=== PATIENT | male | born 1965 | race Caucasian/White ===

== ENCOUNTER → 2016-06-14 | Outpatient (CLI) | payer MEDICARE, OTHER ==
[2016-06-14 09:35] LABS: HEMATOCRIT 41.2 % (37.9-51.0); HEMOGLOBIN 13.6 g/dL (13.5-17.0); HGB HCT DIFFERENCE -0.4; MEAN CORPUSCULAR HEMOGLOBIN 26.2 pg (27.0-33.4); MEAN CORPUSCULAR HGB CONC 33.1 g/dL (32.0-36.0); MEAN CORPUSCULAR VOLUME 79 fl (80-97); RED CELL DISTRIBUTION WIDTH 14.9 % (11.5-14.0); WHITE BLOOD COUNT 6.4 10^3/uL (4.0-10.5)
[2016-06-14 10:04] LABS: ALANINE AMINOTRANSFERASE 38 U/L (21-72); ALBUMIN 4.5 g/dL (3.5-5.0); ALKALINE PHOSPHATASE 108 U/L (38-126); ANION GAP 11 (5-19); ASPARTATE AMINO TRANSFERASE 21 U/L (17-59); BILIRUBIN,TOTAL 0.5 mg/dL (0.2-1.3); BLOOD UREA NITROGEN 14 mg/dL (7-20); CALCIUM 9.8 mg/dL (8.4-10.2); CARBON DIOXIDE 28 mmol/L (22-30); CHLORIDE 101 mmol/L (98-107); CHOLESTEROL 103.62 mg/dL (0-200); CREATININE RESULT 0.74 mg/dL (0.52-1.25); Direct HDL 35 mg/dL (>40); GLUCOSE 160 mg/dL (75-110); MAGNESIUM 1.8 mg/dL (1.6-2.3); POTASSIUM 4.9 mmol/L (3.6-5.0); SODIUM 140.1 mmol/L (137-145); TOTAL PROTEIN 7.2 g/dL (6.3-8.2); TRIGLYCERIDES 123 mg/dL (<150)
[2016-06-14 10:14] LABS: DIRECT LDL 43 mg/dL (<100)
== END ==
LOC: OD 08:26
PROVIDERS: ATTEND Internal Medicine Cardiovascular Disease
DX: E78.00 Pure hypercholesterolemia, unspecified (principal); E03.9 Hypothyroidism, unspecified; Z79.899 Other long term (current) drug therapy
CPT/HCPCS: 36415; 80048; 80061; 80076; 82977; 83036; 83735; 84443; 85027

== ENCOUNTER → 2016-07-10 | Outpatient (CLI) | payer MEDICARE, OTHER ==
[2016-07-10 11:00] LABS: ANION GAP 10 (5-19); BLOOD UREA NITROGEN 12 mg/dL (7-20); CALCIUM 10.2 mg/dL (8.4-10.2); CARBON DIOXIDE 30 mmol/L (22-30); CHLORIDE 101 mmol/L (98-107); CREATININE RESULT 0.71 mg/dL (0.52-1.25); GLUCOSE 141 mg/dL (75-110); POTASSIUM 4.6 mmol/L (3.6-5.0); SODIUM 141.3 mmol/L (137-145)
== END ==
LOC: OD 09:18
PROVIDERS: ATTEND Internal Medicine Cardiovascular Disease
DX: I10 Essential (primary) hypertension (principal)
CPT/HCPCS: 36415; 80048

== ENCOUNTER → 2017-08-30 | Outpatient (CLI) | payer MEDICARE, OTHER ==
[2017-08-30 11:23] LABS: ANION GAP 13 (5-19); BLOOD UREA NITROGEN 16 mg/dL (7-20); CARBON DIOXIDE 28 mmol/L (22-30); CHLORIDE 98 mmol/L (98-107); GLUCOSE 109 mg/dL (75-110); SODIUM 138.8 mmol/L (137-145)
[2017-09-01 10:14] LABS: FREE T3 4.89 pg/mL (2.77-5.27); FREE T4 (FREE THYROXINE) 1.34 ng/dL (0.78-2.19)
== END ==
LOC: OD 10:26
PROVIDERS: ATTEND Internal Medicine Cardiovascular Disease
DX: I48.0 Paroxysmal atrial fibrillation (principal)
CPT/HCPCS: 36415; 80048; 84439; 84443; 84481

== ENCOUNTER → 2018-01-15 | Outpatient (CLI) | payer MEDICARE, OTHER ==
[2018-01-15 09:52] LABS: HEMATOCRIT 51.2 % (37.9-51.0); HEMOGLOBIN 17.2 g/dL (13.5-17.0); MEAN CORPUSCULAR HEMOGLOBIN 29.1 pg (27.0-33.4); MEAN CORPUSCULAR HGB CONC 33.5 g/dL (32.0-36.0); MEAN CORPUSCULAR VOLUME 87 fl (80-97); PLATELET COUNT 234 10^3/uL (150-450); WHITE BLOOD COUNT 10.1 10^3/uL (4.0-10.5)
[2018-01-15 10:12] LABS: ALANINE AMINOTRANSFERASE 30 U/L (21-72); ALBUMIN 4.2 g/dL (3.5-5.0); ALKALINE PHOSPHATASE 101 U/L (38-126); ANION GAP 11 (5-19); ASPARTATE AMINO TRANSFERASE 31 U/L (17-59); BILIRUBIN,DIRECT 0.4 mg/dL (0.0-0.4); BLOOD UREA NITROGEN 14 mg/dL (7-20); CALCIUM 9.8 mg/dL (8.4-10.2); CARBON DIOXIDE 26 mmol/L (22-30); CHLORIDE 101 mmol/L (98-107); GLUCOSE 167 mg/dL (75-110); POTASSIUM 4.7 mmol/L (3.6-5.0); SODIUM 137.9 mmol/L (137-145); TOTAL PROTEIN 7.1 g/dL (6.3-8.2); TRIGLYCERIDES 213 mg/dL (<150)
[2018-01-15 10:23] LABS: DIRECT LDL 31 mg/dL (<100)
[2018-01-15 10:30] LABS: VLDL CHOLESTEROL 42.6 mg/dL (10-31)
== END ==
LOC: LAB 09:31
PROVIDERS: ATTEND Internal Medicine Cardiovascular Disease
DX: I25.10 Atherosclerotic heart disease of native coronary artery without angina pectoris (principal); I10 Essential (primary) hypertension; I48.0 Paroxysmal atrial fibrillation; R07.9 Chest pain, unspecified; Z79.899 Other long term (current) drug therapy
CPT/HCPCS: 36415; 80048; 80061; 80076; 84443; 85027

== ENCOUNTER → 2018-05-20 | Outpatient (CLI) | payer MEDICARE, OTHER ==
[2018-05-20 09:13] LABS: ALANINE AMINOTRANSFERASE 47 U/L (21-72); ALBUMIN 4.2 g/dL (3.5-5.0); ALKALINE PHOSPHATASE 98 U/L (38-126); ANION GAP 9 (5-19); ASPARTATE AMINO TRANSFERASE 24 U/L (17-59); BILIRUBIN,DIRECT 0.2 mg/dL (0.0-0.4); BILIRUBIN,TOTAL 0.6 mg/dL (0.2-1.3); BLOOD UREA NITROGEN 14 mg/dL (7-20); CALCIUM 9.8 mg/dL (8.4-10.2); CARBON DIOXIDE 28 mmol/L (22-30); CHLORIDE 102 mmol/L (98-107); CHOLESTEROL 108.91 mg/dL (0-200); GLUCOSE 188 mg/dL (75-110); POTASSIUM 5.2 mmol/L (3.6-5.0); SODIUM 138.6 mmol/L (137-145); TOTAL PROTEIN 6.9 g/dL (6.3-8.2); TRIGLYCERIDES 239 mg/dL (<150)
[2018-05-20 09:24] LABS: DIRECT LDL 47 mg/dL (<100)
[2018-05-20 09:29] LABS: VLDL CHOLESTEROL 47.8 mg/dL (10-31)
== END ==
LOC: LAB 08:22
PROVIDERS: ATTEND Internal Medicine Cardiovascular Disease
DX: I25.10 Atherosclerotic heart disease of native coronary artery without angina pectoris (principal); E78.00 Pure hypercholesterolemia, unspecified; I10 Essential (primary) hypertension; Z79.899 Other long term (current) drug therapy
CPT/HCPCS: 36415; 80048; 80061; 80076

== ENCOUNTER 2018-06-02 13:22 | Inpatient (IN) | payer MEDICARE, OTHER ==
[2018-06-02] MEDS ORDERED: ASPIRIN 81 MG TABLET, CHEWABLE PO ONE (13:24)
[2018-06-02] MEDS ORDERED: METOPROLOL TARTRATE PF/INJ 5 MG/5 ML SDV IV ONE ×7 (13:42→15:16)
[2018-06-02 13:44] LABS: HEMATOCRIT 52.3 % (37.9-51.0); HEMOGLOBIN 17.5 g/dL (13.5-17.0); MEAN CORPUSCULAR HEMOGLOBIN 28.4 pg (27.0-33.4); MEAN CORPUSCULAR HGB CONC 33.4 g/dL (32.0-36.0); MEAN CORPUSCULAR VOLUME 85 fl (80-97); PLATELET COUNT 313 10^3/uL (150-450); RED BLOOD COUNT 6.16 10^6/uL (4.35-5.55); RED CELL DISTRIBUTION WIDTH 14.6 % (11.5-14.0)
--- NOTE | 2018-06-02 13:57 | ER Document Report ---
ED Cardiac - General Chief Complaint: Chest Pain > 30 Stated Complaint: CHEST PRESSURE Time Seen by Provider: 06/02/18 13:35 Primary Care Provider: LOREN ZUNIGA MD [EMERITUS] - Follow up as needed Mode of Arrival: Medic Information source: Patient Notes: 53-year-old male with a history of A. fib, peripheral artery disease, diabetes, COPD brought to the emergency department by EMS from 's office. Patient was at the office this morning undergoing a routine physical exam and blood work when it was noted his heart rate to be in a flutter at a rate in the 140s. Patient was asymptomatic at that time. EMS was contacted. 25 mg of Cardizem was given in route. In the emergency department, patient continues to be asymptomatic. He denies any chest pain, shortness of breath, nausea, vomiting, diaphoresis, abdominal pain. Patient states that he feels fine. He is on metoprolol for his atrial fibrillation. He took his medication this morning as usual. Patient's also on Plavix. TRAVEL OUTSIDE OF THE [place] IN LAST 30 DAYS: No - HPI Patient complains to provider of: Other - Sent by primary care physician. Quality of pain: None Severity now: None Pain level currently: Denies Cardiac risk factors: Diabetes, Smoker, Dyslipidemia Associated symptoms: None Exacerbated by: Denies Relieved by: Nothing Similar symptoms previously: Yes Recently seen / treated by doctor: Yes - Related Data Allergies/Adverse Reactions: No Known Allergies Allergy (Verified 06/02/18 13:33) Past Medical History - General Information source: Patient - Social History Smoking Status: Current Every Day Smoker Family History: Reviewed & Not Pertinent - Past Medical History Cardiac Medical History: Reports: Hx Atrial Fibrillation, Hx Hypertension Endocrine Medical History: Reports: Hx Diabetes Mellitus Type 2 - Immunizations Hx Diphtheria, Pertussis, Tetanus Vaccination: Yes Review of Systems - Review of Systems Constitutional: No symptoms reported EENT: No symptoms reported Cardiovascular: Heart racing Respiratory: No symptoms reported Gastrointestinal: No symptoms reported Genitourinary: No symptoms reported Musculoskeletal: No symptoms reported Skin: No symptoms reported Hematologic/Lymphatic: No symptoms reported Neurological/Psychological: No symptoms reported -: Yes All other systems reviewed and negative Physical Exam - Vital signs Vitals: Pulse Ox 100 06/02/18 13:28 - Notes Notes: PHYSICAL EXAMINATION: GENERAL: Well-appearing, well-nourished and in no acute distress. HEAD: Atraumatic, normocephalic. EYES: Pupils equal round and reactive to light, extraocular movements intact, sclera anicteric, conjunctiva are normal. ENT: Nares patent, oropharynx clear without exudates. Moist mucous membranes. NECK: Normal range of motion, supple without lymphadenopathy LUNGS: Breath sounds clear to auscultation bilaterally and equal. No wheezes rales or rhonchi. HEART: Tachycardia. Atrial flutter. ABDOMEN: Soft, nontender, nondistended abdomen. No guarding, no rebound. No masses appreciated. Musculoskeletal: Normal range of motion, no pitting or edema. No cyanosis. NEUROLOGICAL: Cranial nerves grossly intact. Normal speech, normal gait. Normal sensory, motor exams PSYCH: Normal mood, normal affect. SKIN: Warm, Dry, normal turgor, no rashes or lesions noted. Course - Re-evaluation Re-evalutation: 06/02/18 13:57 EKG: Ventricular rate 142, cures duration 90, QTc 449, atrial flutter. 06/02/18 15:41 Labs and imaging obtained. Troponin is within normal limits. No acute process identified. Patient was given 25 mg of Cardizem by EMS. A total of 15 mg of metoprolol was given in the emergency department. Patient continued to have a rate in the 140s. A Cardizem drip was then started. Patient's rate in the 130s on the cardizem drip. Patient continues to be asymptomatic. His vital signs are stable. I would admit the patient to the hospitalist for further evaluation and treatment. - Vital Signs Vital signs: Temp Pulse Resp BP Pulse Ox 98.2 F 140 H 23 H 117/75 94 06/02/18 14:05 06/02/18 13:59 06/02/18 15:01 06/02/18 15:01 06/02/18 15:01 - Laboratory Result Diagrams: 06/02/18 13:10 06/02/18 13:10 Laboratory results interpreted by me: 06/02/18 06/02/18 13:10 13:10 RBC 6.16 H Hgb 17.5 H Hct 52.3 H RDW 14.6 H Chloride 97 L Glucose 164 H Creatine Kinase 30 L Discharge - Discharge Clinical Impression: Atrial flutter Qualifiers: Atrial flutter type: unspecified Qualified Code(s): I48.92 - Unspecified atrial flutter Condition: Good Disposition: ADMITTED OBSERVATION Admitting Provider: Hospitalist Unit Admitted: IMCU Referrals: LOREN ZUNIGA MD [EMERITUS] - Follow up as needed
[2018-06-02 14:05] LABS: ALANINE AMINOTRANSFERASE 39 U/L (21-72); ALBUMIN 4.4 g/dL (3.5-5.0); ALKALINE PHOSPHATASE 112 U/L (38-126); ANION GAP 10 (5-19); ASPARTATE AMINO TRANSFERASE 25 U/L (17-59); BILIRUBIN,DIRECT 0.3 mg/dL (0.0-0.4); BILIRUBIN,TOTAL 0.6 mg/dL (0.2-1.3); BLOOD UREA NITROGEN 10 mg/dL (7-20); CALCIUM 9.8 mg/dL (8.4-10.2); CARBON DIOXIDE 30 mmol/L (22-30); CHLORIDE 97 mmol/L (98-107); CREATINE KINASE 30 U/L (55-170); GLUCOSE 164 mg/dL (75-110); SODIUM 137.2 mmol/L (137-145); TOTAL PROTEIN 7.5 g/dL (6.3-8.2)
[2018-06-02 14:12] LABS: ABSOLUTE LYMPHOCYTES# (MANUAL) 2.9 10^3/uL (0.5-4.7); ABSOLUTE MONOCYTES # (MANUAL) 0.6 10^3/uL (0.1-1.4); ABSOLUTE NEUTROPHILS# (MANUAL) 5.4 10^3/uL (1.7-8.2); BAND NEUTROPHILS % (MANUAL) 3 % (3-5); BASOPHILS % (MANUAL) 0 % (0-2); EOSINOPHILS % (MANUAL) 1 % (0-6); LYMPHOCYTES % (MANUAL) 18 % (13-45); MONOCYTES % (MANUAL) 7 % (3-13); PLATELET COMMENT ADEQUATE; RBC MORPHOLOGY COMMENT NORMO-CYTIC/CHROMIC; SEGMENTED NEUTROPHILS % (MAN) 57 % (42-78); TOTAL CELLS COUNTED 100; TOXIC GRANULATION SLIGHT
[2018-06-02] MEDS ORDERED: NORMAL SALINE 500 ML IV ONE (14:15)
[2018-06-02 14:17] LABS: CREATINE KINASE MB 0.59 ng/mL (<4.55); TROPONIN I < 0.012 ng/mL
[2018-06-02] MEDS: DILTIAZEM HCL/D5W 125 MG/125 ML RTUINJ IV PRN ×5 (14:47→17:05)
--- NOTE | 2018-06-02 15:50 | RADIOLOGY REPORT (SQ) ---
EXAM DESCRIPTION: CHEST SINGLE VIEW COMPLETED DATE/TIME: 06/02/2018 3:23 pm REASON FOR STUDY: bed 18 tachy COMPARISON: 2010 EXAM PARAMETERS: NUMBER OF VIEWS: One view. TECHNIQUE: Single frontal radiographic view of the chest acquired. RADIATION DOSE: NA LIMITATIONS: None. FINDINGS: LUNGS AND PLEURA: No opacities, masses or pneumothorax. No pleural effusion. MEDIASTINUM AND HILAR STRUCTURES: No masses. Contour normal. HEART AND VASCULAR STRUCTURES: Heart normal in size. Normal vasculature. BONES: No acute findings. HARDWARE: None in the chest. OTHER: No other significant finding. IMPRESSION: NO ACUTE RADIOGRAPHIC FINDING IN THE CHEST. TECHNICAL DOCUMENTATION: JOB ID: [id number] [employer]- All Rights Reserved Reading location - IP/workstation name: [email or web address]
[2018-06-02 16:04] LABS: APPEARANCE,URINE CLEAR; BILIRUBIN,URINE NEGATIVE (NEGATIVE); COLOR,URINE YELLOW; GLUCOSE, URINE NEGATIVE (NEGATIVE); KETONES,URINE NEGATIVE (NEGATIVE); LEUKOCYTE ESTERASE,URINE NEGATIVE (NEGATIVE); NITRITE,URINE NEGATIVE (NEGATIVE); PROTEIN,URINE NEGATIVE (NEGATIVE); URINE SPECIFIC GRAVITY 1.006; UROBILINOGEN,URINE NEGATIVE mg/dL (<2.0)
[2018-06-02 16:08] LABS: FREE T4 (FREE THYROXINE) 1.26 ng/dL (0.78-2.19)
[2018-06-02 16:22] LABS: THYROID STIMULATING HORMONE 1.26 uIU/mL (0.47-4.68)
[2018-06-02 16:23] LABS: URINE AMPHETAMINES SCREEN NEGATIVE; URINE BARBITURATES SCREEN NEGATIVE; URINE BENZODIAZEPINES SCREEN NEGATIVE; URINE COCAINE SCREEN NEGATIVE; URINE MARIJUANA (THC) SCREEN NEGATIVE; URINE METHADONE SCREEN NEGATIVE; URINE PHENCYCLIDINE SCREEN NEGATIVE
[2018-06-02] MEDS ORDERED: LEVALBUTEROL HCL NEB 1.25 MG/3 ML AMPUL NEB PRN (16:35)
[2018-06-02] MEDS ORDERED: NORMAL SALINE 1000 ML 1,000 ML IV PRN (16:35)
[2018-06-02] MEDS ORDERED: ACETAMINOPHEN 325 MG TABLET PO PRN (16:35)
[2018-06-02] MEDS ORDERED: ONDANSETRON HCL INJ/PF 4 MG/2 ML SDV IV PRN (16:49)
[2018-06-02] MEDS ORDERED: MAG HYDROX/AL HYDROX/SIMETH SUSP 30 ML UDCUP PO PRN (16:49)
[2018-06-02] MEDS ORDERED: MAGNESIUM HYDROXIDE SUSP 30 ML UDCUP PO PRN (16:49)
[2018-06-02] MEDS ORDERED: MORPHINE SULFATE 10 MG/ML INJ IV PRN (17:13)
[2018-06-02] MEDS ORDERED: NITROGLYCERIN 0.4 MG/TAB 25 TAB/BOTTLE SL PRN (17:13)
[2018-06-02] MEDS ORDERED: LORAZEPAM 1 MG TABLET PO PRN (17:21)
[2018-06-02] MEDS ORDERED: DEXTROSE 50%-WATER 25 GM/50 ML DISP.SYRIN IV PRN ×2 (17:22)
[2018-06-02] MEDS ORDERED: DEXTROSE 40% GEL 15 GM TUBE PO PRN ×2 (17:22)
[2018-06-02] MEDS ORDERED: INSULIN LISPRO 100 UNIT/ML 3 ML VIAL SUBCUT PRN (17:22)
[2018-06-02] MEDS ORDERED: GLUCAGON,HUMAN RECOMB 1 MG INJ IM PRN (17:22)
[2018-06-02] MEDS ORDERED: GUAIFENESIN SYRP 200 MG/10 ML UDC PO PRN (17:26)
--- NOTE | 2018-06-02 17:58 | PDOC H&P ---
Addendum entered and electronically signed by PENNY ZARATE NP-C 06/02/18 18:56: Provider Note Provider Note: Spoke with the patient's primary and consulted legal support assistant, Dr. Hurley, regarding the patient's progress since arrival to our facility. Dr. Hurley was informed that the patient has received diltiazem push followed by Lopressor 30 mg total at 5 mg increments, and then initiated on diltiazem drip which has been maxed out. Patient remains in a. flutter with a rate in the 140s. Patient currently describes nonspecific chest discomfort, unchanged from arrival, with normotensive blood pressures. Requested recommendations for continued attempts at rate control. Dr. Hurley is arranging transfer to tertiary care facility where solid waste analyst available. No new medication recommendations at this time. Original Note: History of Present Illness Admission Date/PCP: 06/02/18 16:24 CHING MATREY Patient complains of: Chest pressure History of Present Illness: DANIELE ADKINS is a 53 year old male with a past medical history significant for atrial fibrillation, COPD, SHAZIA (utilizes CPAP), COPD, DM 2, PVD, neuropathy, chronic back pain, opiate dependence with continuous use, tobacco dependence with continuous use, and heavy EtOH use who was sent by his legal support assistant, Dr. Hurley, for report of chest pressure and atrial flutter with RVR. The patient had been at his legal support assistant for routine follow-up when he was noted to be in aflutter. The patient reports that he has had a chest cold for several weeks and has had intermittent chest pressure but cannot attest to whether it is related to cardiac or his upper respiratory infection. He does endorse fever, chills, malaise, dyspnea on exertion, and a productive cough. He reports that his has similar symptoms. Evaluation in the emergency department reveals a flutter with RVR rate of [address] depression in the lateral leads, benign chest x-ray, and an unremarkable laboratory evaluation including a normal troponin TSH/free T4, CBC and chemistry. The patient is referred to the hospitalist service for admission and management of the above mentioned complaints and findings. Past Medical History Cardiac Medical History: Reports: Atrial Fibrillation, Hypertension Pulmonary Medical History: Reports: Chronic Obstructive Pulmonary Disease ( COPD), Sleep Apnea EENT Medical History: Reports: None Neurological Medical History: Reports: None Endocrine Medical History: Reports: Diabetes Mellitus Type 2 Renal/ Medical History: Reports: None Malignancy Medical History: Reports: None GI Medical History: Reports: None Musculoskeltal Medical History: Reports: Arthritis Skin Medical History: Reports: None Psychiatric Medical History: Reports: Alcohol Dependency, Tobacco Dependency Traumatic Medical History: Reports: None Hematology: Reports: None Infectious Medical History: Reports: None Past Surgical History Past Surgical History: Reports: Orthopedic Surgery - b/l knee replace, Vascular Surgery - b/l fempop-by pass Social History Information Source: Patient Lives with: Family Smoking Status: Current Every Day Smoker Cigarettes Packs Per Day: 1 Frequency of Alcohol Use: Heavy Amount of Alcoholic Beverages Per Day: 2.5 Hx Recreational Drug Use: No Drugs: None Hx Prescription Drug Abuse: No - Advance Directive Resuscitation Status: Full Code Surrogate healthcare decision maker:: The patient's , Kailey Adkins Family History Family History: Reviewed & Not Pertinent Parental Family History Reviewed: Yes Children Family History Reviewed: Yes Sibling(s) Family History Reviewed.: Yes Medication/Allergy Allergies/Adverse Reactions: No Known Allergies Allergy (Verified 06/02/18 13:33) Review of Systems Constitutional: PRESENT: chills, fatigue, fever(s), headache(s), other - acutely ill appearing. ABSENT: weight gain, weight loss Eyes: ABSENT: visual disturbances Ears: ABSENT: hearing changes Cardiovascular: PRESENT: chest pain. ABSENT: dyspnea on exertion, edema, orthropnea, palpitations Respiratory: PRESENT: cough, dyspnea, sputum. ABSENT: hemoptysis Gastrointestinal: ABSENT: abdominal pain, constipation, diarrhea, hematemesis, hematochezia, nausea, vomiting Genitourinary: ABSENT: dysuria, hematuria Musculoskeletal: ABSENT: joint swelling Integumentary: ABSENT: rash, wounds Neurological: ABSENT: abnormal gait, abnormal speech, confusion, dizziness, focal weakness, syncope Psychiatric: ABSENT: anxiety, depression, homidical ideation, suicidal ideation Endocrine: ABSENT: cold intolerance, heat intolerance, polydipsia, polyuria Hematologic/Lymphatic: ABSENT: easy bleeding, easy bruising Physical Exam Vital Signs: Temp Pulse Resp BP Pulse Ox 98.2 F 140 H 18 122/80 96 06/02/18 14:05 06/02/18 13:59 06/02/18 17:01 06/02/18 17:01 06/02/18 17:01 Intake & Output 06/01/18 06/02/18 06/03/18 06:59 06:59 06:59 Intake Total 21 Balance 21 Weight 103.6 kg General appearance: PRESENT: cooperative, disheveled, mild distress, obese, w ell-developed, well-nourished, other - acutely ill appearing Head exam: PRESENT: atraumatic, normocephalic Eye exam: PRESENT: conjunctiva pink, EOMI, PERRLA. ABSENT: scleral icterus Ear exam: PRESENT: normal external ear exam Mouth exam: PRESENT: moist, tongue midline Neck exam: ABSENT: carotid bruit, JVD, lymphadenopathy, thyromegaly Respiratory exam: PRESENT: prolonged expiratory phas, rhonchi, symmetrical, unlabored. ABSENT: rales, wheezes Cardiovascular exam: PRESENT: irregular rhythm, +S1, +S2, tachycardia. ABSENT: diastolic murmur, rubs, systolic murmur Pulses: PRESENT: normal dorsalis pedis pul Vascular exam: PRESENT: normal capillary refill GI/Abdominal exam: PRESENT: normal bowel sounds, soft. ABSENT: distended, guarding, mass, organolmegaly, rebound, tenderness Rectal exam: PRESENT: deferred Extremities exam: PRESENT: full ROM. ABSENT: calf tenderness, clubbing, pedal edema Neurological exam: PRESENT: alert, awake, oriented to person, oriented to place, oriented to time, oriented to situation, CN II-XII grossly intact. ABSENT: motor sensory deficit Psychiatric exam: PRESENT: appropriate affect, normal mood. ABSENT: homicidal ideation, suicidal ideation Skin exam: PRESENT: dry, intact, warm. ABSENT: cyanosis, rash Results Laboratory Results: 06/02/18 13:10 06/02/18 13:10 06/02/18 06/02/18 06/02/18 13:10 13:10 13:10 WBC 9.0 RBC 6.16 H Hgb 17.5 H Hct 52.3 H MCV 85 MCH 28.4 MCHC 33.4 RDW 14.6 H Plt Count 313 Seg Neutrophils % Not Reportable Lymphocytes % Not Reportable Monocytes % Not Reportable Eosinophils % Not Reportable Basophils % Not Reportable Absolute Neutrophils Not Reportable Absolute Lymphocytes Not Reportable Absolute Monocytes Not Reportable Absolute Eosinophils Not Reportable Absolute Basophils Not Reportable Sodium 137.2 Potassium 5.0 Chloride 97 L Carbon Dioxide 30 Anion Gap 10 BUN 10 Creatinine 0.64 Est GFR ( Amer) > 60 Est GFR (Non-Af Amer) > 60 Glucose 164 H Calcium 9.8 Total Bilirubin 0.6 AST 25 ALT 39 Alkaline Phosphatase 112 Total Protein 7.5 Albumin 4.4 TSH 1.26 Free T4 1.26 Urine Color Urine Appearance Urine pH Ur Specific [place] Urine Protein Urine Glucose (UA) Urine Ketones Urine Blood Urine Nitrite Ur Leukocyte Esterase Urine WBC (Auto) Urine RBC (Auto) 06/02/18 15:46 WBC RBC Hgb Hct MCV MCH MCHC RDW Plt Count Seg Neutrophils % Lymphocytes % Monocytes % Eosinophils % Basophils % Absolute Neutrophils Absolute Lymphocytes Absolute Monocytes Absolute Eosinophils Absolute Basophils Sodium Potassium Chloride Carbon Dioxide Anion Gap BUN Creatinine Est GFR ( Amer) Est GFR (Non-Af Amer) Glucose Calcium Total Bilirubin AST ALT Alkaline Phosphatase Total Protein Albumin TSH Free T4 Urine Color YELLOW Urine Appearance CLEAR Urine pH 6.0 Ur Specific [place] 1.006 Urine Protein NEGATIVE Urine Glucose (UA) NEGATIVE Urine Ketones NEGATIVE Urine Blood NEGATIVE Urine Nitrite NEGATIVE Ur Leukocyte Esterase NEGATIVE Urine WBC (Auto) 0 Urine RBC (Auto) 0 06/02/18 06/02/18 13:10 13:10 Creatine Kinase 30 L CK-MB (CK-2) 0.59 Troponin I < 0.012 Impressions: Chest X-Ray 06/02/18 13:24 IMPRESSION: NO ACUTE RADIOGRAPHIC FINDING IN THE CHEST. Assessment & Plan - Diagnosis (1) Atrial flutter with rapid ventricular response Is this a current diagnosis for this admission?: Yes Plan: Sent from legal support assistant's office for a. flutter with RVR. EKG demonstrates a flutter with RVR and ST segment depression in the lateral leads with a heart rate in the 140s. Chest x-ray is benign. Initial troponin is negative. TSH and free T4 are normal. Emergency department provider made multiple attempts to obtain rate control through IV fluid boluses, diltiazem push, and multiple Lopressor pushes without effect. He was subsequently placed on diltiazem drip and referred to the hospitalist service. Will admit to [facility] on continuous cardiac telemetry. Continue diltiazem drip. Trial digoxin IV push x1. Start full dose Lovenox. Resume home medication regiment once reconciled. We will consult the patient's primary legal support assistant, Dr. Hurley. (2) Diabetes Qualifiers: Diabetes mellitus type: type 2 Diabetes mellitus terminal carman insulin use: without usp use Is this a current diagnosis for this admission?: Yes Plan: The patient is placed on a consistent carb diet. Accu-Cheks before meals and at bedtime with Humalog for sliding scale coverage. The registered dietitian and certified breastfeeding educator consulted. Hypoglycemia protocol in place. (3) COPD (chronic obstructive pulmonary disease) Qualifiers: COPD type: unspecified COPD Qualified Code(s): J44.9 - Chronic obstructive pulmonary disease, unspecified Is this a current diagnosis for this admission?: Yes Plan: Patient with a history of COPD; not home O2 dependent, with continuous tobacco use. Does present with URI symptoms and a flutter with RVR. On exam, he is noted to have rhonchi and a productive cough. No wheezing noted. We will provide supplemental oxygen as needed to maintain oxygen saturations >89% Scheduled and as needed nebulizer treatments. Mucinex twice daily. Incentive spirometer and flutter valve to bedside. As the patient does not have wheezing; will hold on steroids at this time. (4) Upper respiratory infection Qualifiers: URI type: unspecified viral URI Qualified Code(s): J06.9 - Acute upper respiratory infection, unspecified Is this a current diagnosis for this admission?: Yes Plan: Patient reports approximately 2 weeks of upper respiratory symptoms including subjective fever, chills, malaise, shortness of breath with activity, and a pro ductive cough. The patient's had similar symptoms. He is afebrile on presentation with a normal WBC Chest x-ray is benign. Sputum culture pending. No indications for antibiotics at this time. Supportive care as above. (5) Tobacco dependence Is this a current diagnosis for this admission?: Yes Plan: Smoking cessation is encouraged; nicotine replacement therapies are provided. - Time Time Spent: 50 to 70 Minutes Smoking Cessation Education: 3 to 10 minutes Medications reviewed and adjusted accordingly: Yes Anticipated discharge: Home - Inpatient Certification Based on my medical assessment, after consideration of the patient's comorbidities, presenting symptoms, or acuity I expect that the services needed warrant INPATIENT care.: Yes I certify that my determination is in accordance with my understanding of Medicare's requirements for reasonable and necessary INPATIENT services [42 CFR 412.3e].: Yes Medical Necessity: Need Close Monitoring Due to Risk of Patient Decompensation, Need For IV Fluids, Need For Continuous Telemetry Monitoring
--- NOTE | 2018-06-02 18:29 | EKG REPORT ---
SEVERITY:- ABNORMAL ECG - ATRIAL FLUTTER. LEFT AXIS DEVIATION : Confirmed by: Jia Parks MD 02-Jun-2018 18:29:12
[2018-06-02] MEDS ORDERED: DIGOXIN INJ 0.5 MG/2 ML AMPULE IV ONE (18:30)
[2018-06-02] MEDS ORDERED: IPRATROPIUM/ALBUTEROL 0.5-2.5 MG/3 ML AMPUL NEB SCH (20:00)
[2018-06-02 21:56] VITALS: BP 119/57
[2018-06-02] MEDS ORDERED: FAMOTIDINE 20 MG TABLET PO SCH (22:00)
[2018-06-02] MEDS ORDERED: GUAIFENESIN 600 MG TABLET.SA PO SCH (22:00)
[2018-06-02] MEDS ORDERED: METOPROLOL SUCCINATE 50 MG TAB.SR.24H PO SCH (22:00)
[2018-06-02] MEDS ORDERED: ENOXAPARIN SODIUM INJ 120 MG/0.8 ML DISP.SYRIN SUBCUT SCH (22:00)
[2018-06-03] MEDS ORDERED: DOCUSATE SODIUM 100 MG CAPSULE PO SCH (10:00)
[2018-06-03] MEDS ORDERED: NICOTINE 21 MG/24 HR PATCH.TD24 TD SCH (10:00)
[2018-06-03] MEDS ORDERED: ASPIRIN 81 MG TABLET, ENT COATED PO SCH (10:00)
--- NOTE | 2018-06-05 13:41 | DISCHARGE SUMMARY E ---
Discharge Summary NAME: DANIELE EDMONDSON : 1965 AGE: 53Y ADMITTED: 06/02/2018 DISCHARGED: 06/02/2018 DISCHARGE SUMMARY: This is a 53-year-old white man with a history of postop A-fib since 2011 after a left total knee replacement. Over the years, his followup has been sketchy. He bounces in and out of my office at will and came back today complaining of residual cough and cold. He was not aware of any rapid palpitations. He had taken metoprolol 50 mg, his usual dose at 7 a.m. prior to being seen. On his examination, he was not in any distress, but I noted his blood pressure was 96/72. Auscultation of the heart, he has a heart rate of 138. A STAT EKG was done showing him to be in classic atrial flutter with ventricular rate of 139-144 per minute. He continued to be asymptomatic except for a barking cough. Therefore, the onset of this atrial flutter is unknown, and he is borderline hypotensive with systolic blood pressure 96. I called EMS to transport him to the ER for IV infusion, IV beta chasity, and/or calcium channel chasity with IV heparin in case he converts. He was managed by hospitalist in the ER. His ER laboratory tests showed hemoglobin 17.5, WBC 9.0, platelets 313,000. His renal function panel showed BUN 10, creatinine 0.64, sodium 137, potassium 5.0, and magnesium level was 1.9. His TSH was 1.26 with no evidence of hyperthyroidism. His troponin I was negative at 0.012 x2, his urine screening showed that he was taking opiates. In the ER, he was given IV Lopressor several times at 5 mg increments to a total of 30 mg,when this did not slow down the heart rate, he was put on diltiazem drip and he was maxed out on diltiazem drip, according to hospitalist. His ventricular response and atrial flutter remained at 138-140 and his blood pressure off and on would dip to hypotensive levels as low as 80 and he was given IV fluids in boluses of 250 mL. Hospitalist called me for further ideas. Given the fact that patient remains in atrial flutter, duration in atrial flutter is not known, it would be risky to attempt cardioversion unless he is truly, profoundly, persistently hypotensive,and this is not the situation. His hypotension can be resuscitated with IV fluids, and so far, only 500 mL was given, so I gave him another 250 mL. The patient clearly needs cardioversion by medication or by DCCV. However, prior to that being attempted, the unknown duration of the atrial flutter, we need a transesophageal echo to make sure he does not have any left atrial clot, before it is safe to perform DCCV or use of IV amiodarone. Hospitalist was supposed to make transfer arrangements to [facility] where there are plenty of electrophysiologists. However, she had previously met with very poor calker from the ammunition specialist EP network consultant down there, so she requested me to assist with the transfer by talking to the compressor technician. I texted Dr. Link (EP) for assistance, but she could not help me other than pointing me through normal channels transfer station. Finally, I was able to talk to the EP ammunition specialist, Dr. Quentin Ames, who approved the transfer. Arrangements were then made to transfer him to [facility]. Then, the ER told me that because I arranged the transfer I had to cosign the EMTALA in the ER, so I went over there to sign the EMTALA forms, and to check on the patient, and at that time, he was still in atrial flutter with rapid ventricular response 140 with transient blood pressure dipping down to the 80s, resuscitated by IV fluid. Finally, [facility] ambulance came and patient was transferred in stable condition to [facility] for further procedures by electrophysiology scheduling administrator. TRANSFER DIAGNOSES: 1. Paroxysmal atrial flutter, duration unknown, rapid ventricular response, unresponsive to IV beta chasity and calcium channel blockers, needing cardioversion by medication or by DCC shock after VIC. 2. Hypotension without any evidence of myocardial necrosis. DICTATING PHYSICIAN: LOREN ZUNIGA M.D. [id number] PHY#: [id number] ID: [id number] JOB#: [id number] ACCT: [id number] cc:MD LOREN SCOTT M.D. > [facility]
== END 2018-06-02 21:15 | disposition short-term general hospital (02) | DRG 309 ==
LOC: ER 13:22 → OBSVTOIN 16:24 → EH 16:24
PROVIDERS: ADMIT Internal Medicine; ATTEND Internal Medicine
PROC: 3E0F73Z Introduction of Anti-inflammatory into Respiratory Tract, Via Natural or Artificial Opening (ICD-10-PCS; principal; 2018-06-02)
DX: I48.92 Unspecified atrial flutter (principal); F11.20 Opioid dependence, uncomplicated; I95.9 Hypotension, unspecified; J44.9 Chronic obstructive pulmonary disease, unspecified; G47.33 Obstructive sleep apnea (adult) (pediatric); E11.51 Type 2 diabetes mellitus with diabetic peripheral angiopathy without gangrene; E11.40 Type 2 diabetes mellitus with diabetic neuropathy, unspecified; G89.29 Other chronic pain; M54.9 Dorsalgia, unspecified; F17.210 Nicotine dependence, cigarettes, uncomplicated; I10 Essential (primary) hypertension; M19.90 Unspecified osteoarthritis, unspecified site; F10.20 Alcohol dependence, uncomplicated; J06.9 Acute upper respiratory infection, unspecified; Z79.899 Other long term (current) drug therapy
CPT/HCPCS: 36415; 71045; 80053; 80307; 81001; 82550; 82553; 82962; 83735; 84439; 84443; 84484; 85025; 87070; 87205; 93005; 93010; 94640; 96365; 96366; 96375; 99285; J1160; J3490; J7040; J7620